=== PATIENT | female | born 1995 | race Caucasian/White ===

== ENCOUNTER 2019-05-19 11:49 | Inpatient (IN) | payer OTHER ==
[2019-05-19] MEDS ORDERED: MISOPROSTOL 200 MCG TAB PR (14:00)
[2019-05-19] MEDS ORDERED: OXYTOCIN 30 UNITS/LR 500 ML IV (14:00)
[2019-05-19] MEDS ORDERED: LIDOCAINE 1% (MPF) 30 ML INJ INJ (14:00)
[2019-05-19] MEDS ORDERED: CARBOPROST 250 MCG INJ IM (14:00)
[2019-05-19] MEDS ORDERED: METHYLERGONOVINE 0.2 MG INJ IM (14:00)
[2019-05-19] MEDS ORDERED: IBUPROFEN 600 MG TAB PO (14:00)
[2019-05-19] MEDS: LACTATED RINGER'S 1,000 ML IV ×2 (15:09→21:43)
[2019-05-19] MEDS: AMPICILLIN 2 GM/NS (PMX) 100 ML IV (15:12)
[2019-05-19 15:29] LABS: ADD MAN DIFF? NO
[2019-05-19 15:32] LABS: WHITE BLOOD COUNT 6.6 10^3/ul (4.8-10.8)
[2019-05-19 15:32] LABS: BASOPHILS % 0.2 % (0.0-2.0); EOSINOPHILS % 0.3 % (0.0-7.0); HEMATOCRIT 40.7 % (37.0-47.0); HEMOGLOBIN 13.6 g/dl (12.0-16.0); LYMPHOCYTES # 1.5 10^3/ul (0.8-2.9); LYMPHOCYTES % 23.1 % (15.0-51.0); MEAN CORPUSCULAR HEMOGLOBIN 31.2 pg (29.0-33.0); MEAN CORPUSCULAR HGB CONC 33.4 g/dl (32.0-37.0); MEAN CORPUSCULAR VOLUME 93.3 fl (82.0-101.0); MEAN PLATELET VOLUME 11.8 fl (7.4-10.4); MONOCYTE # 0.4 10^3/ul (0.3-0.9); MONOCYTES % 5.6 % (0.0-11.0); NEUTROPHIL # 4.7 10^3/ul (1.6-7.5); NEUTROPHILS % 70.5 % (39.0-77.0); PLATELET COUNT 207 10^3/UL (140-415); RED BLOOD COUNT 4.36 10^6/ul (4.20-5.40); RED CELL DISTRIBUTION WIDTH 12.5 % (11.5-14.5)
[2019-05-19 15:53] LABS: INR 0.82; PROTIME 11.4 Sec (11.9-14.9); PT RATIO 0.9
[2019-05-19 15:54] LABS: PARTIAL THROMBOPLASTIN TIME 27.6 Sec (23.0-35.0)
[2019-05-19] MEDS: OXYTOCIN 30 UNITS/LR 500 ML IV (15:56)
[2019-05-19] MEDS: AMPICILLIN 1 GM/NS (PMX) 50 ML IV ×2 (19:18→23:05)
[2019-05-20] MEDS: AMPICILLIN 1 GM/NS (PMX) 50 ML IV ×4 (02:39→14:00)
[2019-05-20] MEDS: LACTATED RINGER'S 1,000 ML IV ×3 (06:20→21:46)
[2019-05-20] MEDS: BUTORPHANOL 2 MG INJ IV (06:55)
[2019-05-20] MEDS: OXYTOCIN 30 UNITS/LR 500 ML IV ×2 (07:57→08:42)
[2019-05-20] MEDS ORDERED: ONDANSETRON 4 MG INJ IV (08:00)
[2019-05-20] MEDS ORDERED: SENNA/DOCUSATE NA (8.6MG/50MG) TAB PO (08:00)
[2019-05-20] MEDS ORDERED: ONDANSETRON 4 MG TAB PO (08:00)
[2019-05-20] MEDS ORDERED: CARBOPROST 250 MCG INJ IM (08:00)
[2019-05-20] MEDS ORDERED: OXYTOCIN 30 UNITS/LR 500 ML IV (08:00)
[2019-05-20] MEDS ORDERED: DIPHENHYDRAMINE 25 MG CAP PO (08:00)
[2019-05-20] MEDS ORDERED: MAGNESIUM HYDROXIDE 30ML CUP PO (08:00)
[2019-05-20] MEDS ORDERED: DIBUCAINE 1% 30 GM OINT TOP (08:00)
[2019-05-20] MEDS ORDERED: NA PHOSPHATE/BIPHOS 133 ML ENEMA PR (08:00)
[2019-05-20] MEDS ORDERED: DIPHENHYDRAMINE 50 MG INJ IV (08:00)
[2019-05-20] MEDS ORDERED: HYDROCODONE/APAP (5/325) TAB PO ×2 (08:00)
[2019-05-20] MEDS ORDERED: MISOPROSTOL 200 MCG TAB PR (08:00)
[2019-05-20] MEDS: LANOLIN HPA 1 PKT TOP (12:01)
[2019-05-20] MEDS: SENNA/DOCUSATE NA (8.6MG/50MG) TAB PO ×2 (12:01→22:01)
[2019-05-20] MEDS: IBUPROFEN 600 MG TAB PO ×2 (12:01→18:00)
[2019-05-20] MEDS: WITCH HAZEL/GLYCERIN PAD PR (12:02)
[2019-05-20] MEDS: BENZOCAINE 20% 56 ML SPRAY TOP (12:03)
[2019-05-20] MEDS: LACTATED RINGER'S 1,000 ML IV* ×3 (12:07→23:58)
[2019-05-20 14:35] LABS: HEPATITIS B SURFACE ANTIGEN NEGATIVE (NEGATIVE)
[2019-05-20 22:52] LABS: RAPID PLASMA REAGIN NONREACTIVE (NR)
[2019-05-21] MEDS: IBUPROFEN 600 MG TAB PO ×5 (00:20→23:36)
[2019-05-21] MEDS: LACTATED RINGER'S 1,000 ML IV (05:46)
[2019-05-21] MEDS: LACTATED RINGER'S 1,000 ML IV* (07:58)
[2019-05-21 08:04] LABS: ADD MAN DIFF? NO
[2019-05-21 08:10] LABS: BASOPHILS % 0.3 % (0.0-2.0); EOSINOPHILS # 0.1 10^3/ul (0.0-0.5); EOSINOPHILS % 0.5 % (0.0-7.0); HEMATOCRIT 32.5 % (37.0-47.0); HEMOGLOBIN 11.3 g/dl (12.0-16.0); LYMPHOCYTES # 2.1 10^3/ul (0.8-2.9); LYMPHOCYTES % 21.8 % (15.0-51.0); MEAN CORPUSCULAR HEMOGLOBIN 32.5 pg (29.0-33.0); MEAN CORPUSCULAR HGB CONC 34.8 g/dl (32.0-37.0); MEAN CORPUSCULAR VOLUME 93.4 fl (82.0-101.0); MEAN PLATELET VOLUME 12.2 fl (7.4-10.4); MONOCYTE # 0.7 10^3/ul (0.3-0.9); MONOCYTES % 7.5 % (0.0-11.0); NEUTROPHIL # 6.6 10^3/ul (1.6-7.5); NEUTROPHILS % 69.6 % (39.0-77.0); PLATELET COUNT 187 10^3/UL (140-415); RED BLOOD COUNT 3.48 10^6/ul (4.20-5.40); RED CELL DISTRIBUTION WIDTH 12.4 % (11.5-14.5)
[2019-05-21 08:10] LABS: WHITE BLOOD COUNT 9.6 10^3/ul (4.8-10.8)
[2019-05-21] MEDS: SENNA/DOCUSATE NA (8.6MG/50MG) TAB PO ×2 (09:22→20:22)
[2019-05-22] MEDS: IBUPROFEN 600 MG TAB PO ×2 (05:39→11:54)
[2019-05-22] MEDS: MEASLES,MUMPS,RUBELLA VACCINE INJ SC* (09:00)
[2019-05-22] MEDS: DIPHTH/TET/ACEL PERTUSS (ADULT) 0.5 ML VIAL IM* (09:00)
[2019-05-22] MEDS: VARICELLA VACCINE LIVE/PF 1,350 UNIT/0.5 ML ML SC* (09:00)
[2019-05-22] MEDS: SENNA/DOCUSATE NA (8.6MG/50MG) TAB PO (10:22)
[2019-05-22] MEDS: MEDROXYPROGESTERONE 150 MG INJ SYG IM (13:25)
== END 2019-05-22 15:35 | disposition home or self-care (01) | DRG 807 ==
LOC: OBT 11:49 → PP1 05-20 09:46 → L-D 11:49 → OBT 13:40 → L-D 13:40
PROVIDERS: Obstetrics & Gynecology
PROC: 10E0XZZ Delivery of Products of Conception, External Approach (ICD-10-PCS; principal; 2019-05-20)
DX: O99.824 Streptococcus B carrier state complicating childbirth (principal); Z37.0 Single live birth; Z3A.37 37 weeks gestation of pregnancy
CPT/HCPCS: 76815; 85025; 85610; 85730; 86592; 86850; 86900; 86901; 87340; 90716